=== PATIENT | male | born 1945 | race American Indian/Alaskan Native ===

== ENCOUNTER 2021-01-25 23:28 | Emergency (ER) | payer MEDICARE ==
--- NOTE | 2021-01-25 23:46 | Emergency Department Report ---
ED Fall HPI - General Chief Complaint: Fall Stated Complaint: FALL Time Seen by Provider: 01/25/21 23:35 Source: patient, EMS Mode of arrival: Ambulatory - History of Present Illness Initial Comments: Patient is 75 years old male with history of hypertension. Patient brought to the emergency room via EMS from a local residence after patient found by security attendant laying on the ground. Patient stated that he passed out but he does not remember how he get there. Patient admitted that he has been drinking alcohol prior to this. Patient found to have a left pleural superficial laceration. Patient denied any other injuries. Patient denied chest pain, shortness of breath, abdominal pain, pelvic pain or any extremity pain. Patient currently is alert, oriented x3. GCS is 15. MD Complaint: fall -: unknown Fall Witnessed: no Place Fall Occurred: street Loss of Consciousness: yes Prolonged Down Time?: unclear Location: head, face, neck Associated Symptoms: denies - Related Data Allergies Allergy/AdvReac Type Severity Reaction Status Date / Time lisinopril Allergy Angioedema Verified 12/26/15 11:48 ED Review of Systems ROS: Stated complaint: FALL Other details as noted in HPI Comment: All other systems reviewed and negative Constitutional: denies: chills, fever Respiratory: denies: cough, shortness of breath, SOB with exertion, SOB at rest Cardiovascular: denies: chest pain, palpitations Gastrointestinal: denies: abdominal pain, nausea, vomiting, diarrhea Musculoskeletal: denies: back pain Neurological: denies: headache, weakness, numbness, paresthesias, confusion ED Past Medical Hx - Past Medical History Hx Hypertension: Yes - Social History Smoking Status: Never Smoker Substance Use Type: None ED Physical Exam - General Limitations: No Limitations General appearance: alert, in no apparent distress, other (Smell of alcohol.) - Head Head exam: Present: atraumatic, normocephalic, normal inspection - Eye Eye exam: Present: PERRL, periorbital swelling - ENT ENT exam: Present: other (Superficial laceration to the left eyebrow. No active bleeding.) - Neck Neck exam: Present: normal inspection, full ROM. Absent: tenderness, meningismus - Respiratory Respiratory exam: Present: normal lung sounds bilaterally - Cardiovascular Cardiovascular Exam: Present: regular rate, normal rhythm, normal heart sounds - GI/Abdominal GI/Abdominal exam: Present: soft, normal bowel sounds. Absent: distended, tenderness, guarding, rebound, rigid, organomegaly, mass, bruit, pulsatile mass, hernia - Extremities Exam Extremities exam: Present: normal inspection, full ROM, normal capillary refill. Absent: tenderness - Back Exam Back exam: Present: normal inspection, full ROM. Absent: CVA tenderness (R), CVA tenderness (L) - Neurological Exam Neurological exam: Present: alert, oriented X3, CN II-XII intact. Absent: motor sensory deficit - Psychiatric Psychiatric exam: Present: normal mood. Absent: homicidal ideation, suicidal ideation - Skin Skin exam: Present: warm, intact, normal color ED Course Vital Signs 01/25/21 01/25/21 01/25/21 23:37 23:42 23:44 Temperature 98.7 F Pulse Rate 98 H 96 H Respiratory 20 17 Rate Blood Pressure 170/111 Blood Pressure 170/111 [Left] O2 Sat by Pulse 100 94 99 Oximetry 01/25/21 01/25/21 01/25/21 23:46 23:48 23:50 Temperature Pulse Rate 93 H 98 H 109 H Respiratory 13 15 16 Rate Blood Pressure 170/111 170/111 170/111 Blood Pressure [Left] O2 Sat by Pulse 96 97 97 Oximetry 01/25/21 01/25/21 01/25/21 23:52 23:54 23:56 Temperature Pulse Rate 93 H 91 H 93 H Respiratory 17 15 15 Rate Blood Pressure 170/111 170/111 170/111 Blood Pressure [Left] O2 Sat by Pulse 98 98 96 Oximetry 01/25/21 01/26/21 01/26/21 23:58 00:00 00:02 Temperature Pulse Rate 90 90 89 Respiratory 14 15 14 Rate Blood Pressure 144/95 144/95 144/95 Blood Pressure [Left] O2 Sat by Pulse 98 97 99 Oximetry 01/26/21 01/26/21 01/26/21 00:04 00:06 00:08 Temperature Pulse Rate 89 95 H 95 H Respiratory 16 17 16 Rate Blood Pressure 144/95 144/95 144/95 Blood Pressure [Left] O2 Sat by Pulse 98 96 97 Oximetry 01/26/21 01/26/21 01/26/21 00:10 00:12 00:13 Temperature Pulse Rate 93 H 103 H 96 H Respiratory 15 12 15 Rate Blood Pressure 144/95 144/95 173/108 Blood Pressure [Left] O2 Sat by Pulse 97 97 97 Oximetry 01/26/21 01/26/21 01/26/21 00:14 00:16 00:18 Temperature Pulse Rate 100 H 122 H 108 H Respiratory 14 20 17 Rate Blood Pressure 173/108 173/108 173/108 Blood Pressure [Left] O2 Sat by Pulse 98 99 96 Oximetry 01/26/21 01/26/21 01/26/21 00:20 00:22 00:24 Temperature Pulse Rate 94 H 107 H 103 H Respiratory 19 15 15 Rate Blood Pressure 173/108 173/108 173/108 Blood Pressure [Left] O2 Sat by Pulse 97 98 100 Oximetry 01/26/21 01/26/21 01/26/21 00:26 00:28 00:56 Temperature Pulse Rate 93 H 109 H 101 H Respiratory 16 23 16 Rate Blood Pressure 173/108 173/108 172/106 Blood Pressure [Left] O2 Sat by Pulse 99 98 98 Oximetry 01/26/21 01/26/21 01/26/21 00:58 01:00 01:02 Temperature Pulse Rate 105 H 106 H 105 H Respiratory 15 16 13 Rate Blood Pressure 172/106 172/106 172/106 Blood Pressure [Left] O2 Sat by Pulse 97 98 Oximetry 01/26/21 01/26/21 01/26/21 01:04 01:06 01:08 Temperature Pulse Rate 107 H 112 H 99 H Respiratory 17 14 16 Rate Blood Pressure 172/106 172/106 162/101 Blood Pressure [Left] O2 Sat by Pulse 70 L 100 Oximetry 01/26/21 01/26/21 01/26/21 01:10 01:12 01:14 Temperature Pulse Rate 106 H 91 H 87 Respiratory 14 13 15 Rate Blood Pressure 162/101 123/85 123/85 Blood Pressure [Left] O2 Sat by Pulse 98 98 99 Oximetry 01/26/21 01/26/21 01/26/21 01:16 01:18 01:20 Temperature Pulse Rate 84 81 81 Respiratory 15 16 12 Rate Blood Pressure 123/85 123/85 123/85 Blood Pressure [Left] O2 Sat by Pulse 98 93 95 Oximetry 01/26/21 01/26/21 01/26/21 01:22 01:24 01:26 Temperature Pulse Rate 84 82 82 Respiratory 15 15 15 Rate Blood Pressure 123/85 123/85 123/85 Blood Pressure [Left] O2 Sat by Pulse 100 99 98 Oximetry 01/26/21 01/26/21 01/26/21 01:28 01:30 01:31 Temperature Pulse Rate 83 86 Respiratory 15 15 Rate Blood Pressure 135/90 135/90 135/90 Blood Pressure [Left] O2 Sat by Pulse 99 97 98 Oximetry ED Medical Decision Making - Lab Data Result diagrams: 01/25/21 23:47 01/25/21 23:47 - Radiology Data Radiology results: report reviewed - Medical Decision Making Patient is 75 years old male with history of hypertension. Patient brought to the emergency room via EMS from a local residence after patient found by security attendant laying on the ground. Patient stated that he passed out but he does not remember how he get there. Patient admitted that he has been drinking alcohol prior to this. Patient found to have a left pleural superficial laceration. Patient denied any other injuries. Patient denied chest pain, shortness of breath, abdominal pain, pelvic pain or any extremity pain. Patient currently is alert, oriented x3. GCS is 15. CT brain and CT cervical spine is unremarkable however we noticed a large thoracic aortic aneurysm on the CT cervical spine so I went ahead and order CT angiogram of the chest and abdomen pelvis which showed a large 6 cm thoracic aortic aneurysm. I immediately called [facility] and I discussed the patient with Dr. Jaquez, cardiothoracic surgeon flotation tender helper at 3:52 AM. stated that patient does not need to be transfer he just need to follow-up as an outpatient. I discussed with the patient his CT finding and the importance of following up with cardiothoracic in the next 2 to 3 days and also to return to the ER if he develop any new symptoms. Patient understood the instruction well and he stated that he will follow up with the cardiothoracic doctor. Critical Care Time: Yes Critical care time in (mins) excluding proc time.: 30 Critical care attestation.: If time is entered above; I have spent that time in minutes in the direct care of this critically ill patient, excluding procedure time. ED Disposition Clinical Impression: Fall, Head injury, Alcohol intoxication, Aortic aneurysm Disposition: DC-01 TO HOME OR SELFCARE Is pt being admited?: No Condition: Stable Instructions: Abdominal Aortic Aneurysm, [id number] Referrals: ARACELI STATON MD [Primary Care Provider] - 3-5 Days DIVINA JAQUEZ MD [Referring] - 3-5 Days
[2021-01-26 00:03] LABS: Hemoglobin 12.5 gm/dl (11.8-15.2); Mean Corpuscular HGB Conc 34 % (32-34); Platelet Count 108 K/mm3 (140-440); Red Blood Count 3.32 M/mm3 (3.65-5.03); Red Cell Distribution Width 16.7 % (13.2-15.2)
[2021-01-26 00:09] LABS: Mean Corpuscular Volume 112 fl (84-94)
[2021-01-26 00:28] LABS: Albumin 4.2 g/dL (3.9-5)
[2021-01-26 00:33] LABS: INR 0.97 (0.87-1.13); Partial Thromboplastin Time 26.2 Sec. (24.2-36.6)
--- NOTE | 2021-01-26 01:23 | Cat Scan Report ---
CT HEAD WITHOUT CONTRAST HISTORY: Post-fall with injury, now with head pain COMPARISON: None TECHNIQUE: CT imaging of the head was performed in the axial, sagittal, and coronal projections and bone algori thm in axial projection in the soft tissue algorithm. All CT scans at this location are performed using CT dose reduction for ALARA by means of automated e xposure control. CONTRAST: None. FINDINGS: Cerebral and Cerebellar Hemispheres: Moderate diffuse cerebral atrophy present. 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 No midline shift. No acute hemorrhage. No acute cortical infarction. No extra-axial fluid collection. Ventricles: Normal in size and configuration for age. Osseous Structures: No significant abnormality. Visualized Paranasal Sinuses: Opacification left maxillary sinus with mass effect Additional Findings: None IMPRESSION: 1. Marked inflammatory changes left maxillary sinus NOTE: Acute infarct may not be visible by noncontrast CT. Signer Name: Lele Boateng MD Signed: 01/26/2021 1:19 AM Workstation Name: [id number]
--- NOTE | 2021-01-26 01:25 | Cat Scan Report ---
CLINICAL DATA: Post-fall with injury, now with neck pain TECHNICAL DATA: CT imaging of the cervical spine was performed in the axial, sagittal, and coronal projections and eneida ne algorithm in axial projection in the soft tissue algorithm. All CT scans at this location are performed using CT dose reduction for ALARA by means of automated e xposure control. FINDINGS: The ring of C1 is normal. The odontoid is normal. There is no evidence of an offset. There is no e vidence of a fracture. However, degenerative changes are present with narrowing of the C1 odontoid j unction. The spinal canal is well maintained. C2-C3: The spinal canal is well maintained. The neural foramina are normal. The vertebral bodies a re normal. The posterior elements are intact. There is no evidence of a fracture. C3-C4: The spinal canal is well maintained. The neural foramina are normal. The vertebral bodies a re normal. The posterior elements are intact. There is no evidence of a fracture. C4-C5: The spinal canal is well maintained. The neural foramina are normal. The vertebral bodies a re normal. The posterior elements are intact. There is no evidence of a fracture. C5-C6: Marked intervertebral disc space narrowing is present with anterior and posterior osteophytes . The spinal canal is well maintained. The neural foramina are normal. The vertebral bodies are no rmal. The posterior elements are intact. There is no evidence of a fracture. C6-C7: Marked intervertebral disc space narrowing is present with anterior and posterior osteophytes . The spinal canal is well maintained. The neural foramina are normal. The vertebral bodies are no rmal. The posterior elements are intact. There is no evidence of a fracture. C7-T1: The spinal canal is well maintained. The neural foramina are normal. The vertebral bodies a re normal. The posterior elements are intact. There is no evidence of a fracture. IMPRESSION: No acute traumatic abnormality. Degenerative changes as noted. Signer Name: Lele Boateng MD Signed: 01/26/2021 1:21 AM Workstation Name: [id number]
[2021-01-26 02:00] LABS: RBC Morphology Normal; Total Cells Counted 100
[2021-01-26 02:55] LABS: BUN/Creatinine Ratio 14; Blood Urea Nitrogen 18 mg/dL (9-20); Calcium 8.9 mg/dL (8.4-10.2); Hemolysis Index 22
--- NOTE | 2021-01-26 02:56 | Cat Scan Report ---
CTA CHEST ABDOMEN PELVIS, INDICATION / CLINICAL INFORMATION: Syncopal Episode TECHNIQUE: Axial CT images were obtained through the chest abdomen, pelvis after injection of 100 cc Omnipaque 3 50 milligrams percent IV contrast. 3 plane MIP / 3D reconstructions were produced. All CT scans at is location are performed using CT dose reduction for ALARA by means of automated exposure control. COMPARISON: None available. FINDINGS: CTA THORAX PULMONARY ARTERIES: No pulmonary emboli. THORACIC AORTA: Marked atherosclerotic changes of the thoracic aorta is noted with focal aneurysm wit h large mural thrombus and calcifications. This measures 6 cm in superior to inferior dimensions and 5.2 cm in width. The aneurysm extends over distance of 7 cm. No evidence of extravasation. The great vessels to the head neck are patent HEART: No significant abnormality. CORONARY ARTERIES: Scattered coronary calcifications CTA ABDOMEN: Abdominal Aorta: The abdominal aorta demonstrates tortuosity with atherosclerotic calcified plaque. T he infrarenal portion of the abdominal aorta demonstrates aneurysm measuring 4 cm x 3.7 cm with large volume of mural thrombus. This extends into the iliac arterial system Celiac Artery: No significant abnormality. Superior Mesenteric Artery: No significant abnormality. Right Renal Artery: Dual right renal arteries without evidence of stenosis or occlusion Left Renal Artery: No significant abnormality. Inferior Mesenteric Artery: No significant abnormality. 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 - Internal Iliac Artery: No significant abnormality. - External Iliac Artery: Atherosclerotic calcified plaques present. LEFT: - Common Iliac Artery: Atherosclerotic calcified plaque present without evidence of stenosis - Internal Iliac Artery: No significant abnormality. - External Iliac Artery: Atherosclerotic plaque present. NONTARGET STRUCTURES: CHEST: No evidence of consolidation or atelectasis ABDOMEN:Diffuse fatty infiltration of the liver PELVIS:No significant abnormality. LOWER EXTREMITIES:No significant abnormality. SKELETAL: No significant abnormality. ADDITIONAL FINDINGS: None. IMPRESSION: 1. Thoracic aortic aneurysm as noted without evidence of a leak or dissection 2. Abdominal aortic aneurysm without evidence of extravasation 3. 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
[2021-01-26 02:58] LABS: Bilirubin,Direct 0.4 mg/dL (0-0.2)
[2021-01-26 11:36] VITALS: BP 148/100
== END 2021-01-26 12:01 | disposition home or self-care (01) ==
LOC: ED 23:28
DX: S09.90XA Unspecified injury of head, initial encounter (principal); I71.9 Aortic aneurysm of unspecified site, without rupture; F10.129 Alcohol abuse with intoxication, unspecified; I10 Essential (primary) hypertension; Z88.8 Allergy status to other drugs, medicaments and biological substances; W19.XXXA Unspecified fall, initial encounter; Y93.89 Activity, other specified; Y92.89 Other specified places as the place of occurrence of the external cause; Y99.8 Other external cause status
CPT/HCPCS: 36415; 70450; 71275; 72125; 75635; 80048; 80076; 85007; 85025; 85610; 85730; 96374; 99284; Q9967; 80320; G0480